=== PATIENT | female | born 1935 | race Caucasian/White ===

== ENCOUNTER 2016-07-17 05:46 | Inpatient (IN) | payer OTHER, SELFPAY ==
--- NOTE | ~2016-07-17 | EKG ---
PATIENT: WILDER ROWLAND UNIT #: [id number] Ventricular Rate: 60 BPM Atrial Rate: 60 BPM P-R Interval: 136 ms QRS Duration: 104 ms Q-T Interval: 436 ms QTC Calculation(Bezet): 436 ms P [place]: 31 degrees Calculated R [place]: -29 degrees Calculated T [place]: 12 degrees Diagnosis Line: Normal sinus rhythm Diagnosis Line: Moderate voltage criteria for LVH, may be normal Diagnosis Line: variant Diagnosis Line: Borderline ECG Diagnosis Line: No previous ECGs available Diagnosis Line: Confirmed by CHIRAG CHANG MD ([id number]) on Diagnosis Line: 07/18/2016 4:06:39 PM INTERPRETING MD: BERNARDO SPANGLER
--- NOTE | ~2016-07-17 | CR72 ---
[facility] A Service of [facility] & [facility] RADIOLOGY TEXT RESULTS PATIENT: WILDER ROWLAND LOCATION: [facility] 315- : 35 UNIT #: [id number] AGE: [address]: Dorota Hayes MD SEX: F ORDER DR: [id number] [facility] [address] [place], [place] [address] [id number] I MR#: [id number] Acc #: [id number] NAME: WILDER ROWLAND : 1935 SEX: F STUDY DATE/TIME: 07/17/2016 5:42 UNIT: [address] ROOM: [facility] STUDY DESCRIPTION: CR Chest Single View Portable Attending Physician: Dorota Hayes M.D. Ordering Physician: Ruben Travis M.D. Primary Care Physician: Herber Chan M.D. MEDICAL IMAGING REPORT This report is preliminary unless electronic signature is present EXAM Portable chest INDICATIONS Shortness of air, dizziness, and weakness for 1 day. TECHNIQUE/FINDINGS Single portable AP view chest compared to 01/24/2010 EXAM Heart and mediastinal contours within normal limits. There is minimal airspace opacity in the left lung base. No pneumothorax. IMPRESSION No minimal airspace opacity left lung base could represent atelectasis, early infiltrate, or small effusion. Please correlate clinical symptoms. Dictated by... Anuel Brownlee M.D. THIS IS AN ELECTRONICALLY VERIFIED REPORT Anuel Brownlee M.D. at 07/18/2016 8:18 AM [facility]/shabbir TD: 07/17/2016 13:22 JOB #: [id number] MEDICAL IMAGING REPORT COPY
--- NOTE | ~2016-07-17 | MR17 ---
[facility] A Service [facility] RADIOLOGY TEXT RESULTS PATIENT: WILDER ROWLAND LOCATION: [facility] 230-01 : 35 UNIT #: [id number] AGE: [address]: Dorota Hayes MD SEX: F ORDER DR: [id number] [facility] [address] [place], [place] [address] [id number] I MR#: [id number] Acc #: [id number] NAME: WILDER ROWLAND. : 1935 SEX: F STUDY DATE/TIME: 07/18/2016 20:21 UNIT: C3A PCU ROOM: 315 STUDY DESCRIPTION: MR Brain WWo Contrast Attending Physician: Dorota Hayes M.D. Ordering Physician: Dorota Hayes M.D. Primary Care Physician: Herber Chan M.D. MRI CENTER REPORT This report is preliminary unless electronic signature is present. EXAM Brain MRI with and without contrast 07/18/[address] 07/17/2016 PROCEDURE Routine brain MR with and without contrast. CLINICAL HISTORY Episode of dizziness yesterday, particularly exacerbated by movement. Left ear pain for 1 month. FINDINGS There is no MR evidence of acute ischemia or other restricted diffusion. There is volume loss and nonspecific periventricular white matter change, but no evidence of mass or hydrocephalus or extraaxial fluid collection. Normal flow voids are seen in the cerebral vessels. There is a single gradient hypointense focus in the right occipital cortex a few millimeters in size, but nonenhancing and of doubtful clinical significance. Postcontrast images show no evidence of mass or abnormal enhancement. IMPRESSION 1. No acute abnormality. No hemorrhage or mass or evidence of acute ischemia. No abnormal enhancement. There is volume loss and moderate chronic small vessel-type nonspecific white matter change but essentially normal for age. 2. There is a tiny gradient hypointense focus in the right occipital cortex without enhancement. There is probably a tiny calcification in this region on the head CT in retrospect, which may represent [facility] A Service [facility] RADIOLOGY TEXT RESULTS PATIENT: WILDER ROWLAND LOCATION: [place] [address] : 35 UNIT #: [id number] AGE: [address]: Dorota Hayes MD SEX: F ORDER DR: either a tiny cavernoma without enhancement or some remote blood product or some tiny calcification from some remote prior insult but, again, of doubtful clinical significance. The exam is, otherwise, unremarkable. Dictated by... Bhanu Corley M.D. THIS IS AN ELECTRONICALLY VERIFIED REPORT Bhanu Corley M.D. at 07/24/2016 5:11 PM [facility]/cecile TD: 07/19/2016 11:54 JOB #: [id number] MRI CENTER REPORT COPY
--- NOTE | ~2016-07-17 | CT17 ---
[facility] A Service of [facility] RADIOLOGY TEXT RESULTS PATIENT: WILDER ROWLAND LOCATION: [facility] 315-01 : 35 UNIT #: [id number] AGE: [address]: Dorota Hayes MD SEX: F ORDER DR: [id number] [facility] [address] [place], [place] [address] [id number] I MR#: [id number] Acc #: [id number] NAME: WILDER ROWLAND : 1935 SEX: F STUDY DATE/TIME: 07/21/2016 17:58 UNIT: [address] ROOM: [facility] STUDY DESCRIPTION: CT Angio Head Attending Physician: Dorota Hayes M.D. Ordering Physician: Dorota Hayes M.D. Primary Care Physician: Herber Chan M.D. MEDICAL IMAGING REPORT This report is preliminary unless electronic signature is present EXAM CT angiogram of head with IV contrast. DATE OF EXAM 07/21/2016 HISTORY Vertigo for 1 week. TECHNIQUE IV contrast enhanced CT angiogram of the head and neck was performed with 3-D reconstructions. NOTE: This CT exam was performed with one or more of the following radiation dose reduction techniques: automatic exposure control, adjustment of mA and/or kV according to patient size, and iterative reconstruction. FINDINGS Please see CT angiogram of head and neck performed 07/21/2016 for results. Dictated by... Jonathan Caldwell M.D. THIS IS AN ELECTRONICALLY VERIFIED REPORT Jonathan Caldwell M.D. at 07/22/2016 10:47 PM RICHARD/brett TD: 07/22/2016 17:07 JOB #: [id number] MEDICAL IMAGING REPORT COPY
--- NOTE | ~2016-07-17 | CT23 ---
[facility] A Service of [facility] & [facility] RADIOLOGY TEXT RESULTS PATIENT: WILDER ROWLAND LOCATION: [facility] 315-01 : 35 UNIT #: [id number] AGE: [address]: Dorota Hayes MD SEX: F ORDER DR: [id number] [facility] [address] [place], [place] [address] [id number] I MR#: [id number] Acc #: [id number] NAME: WILDER ROWLAND : 1935 SEX: F STUDY DATE/TIME: 07/21/2016 17:58 UNIT: [address] ROOM: [facility] STUDY DESCRIPTION: CT Angio Neck Attending Physician: Dorota Hayes M.D. Ordering Physician: Dorota Hayes M.D. Primary Care Physician: Herebr Chan M.D. MEDICAL IMAGING REPORT This report is preliminary unless electronic signature is present EXAM CT angiogram of head and neck with IV contrast. DATE OF EXAM 07/21/2016 HISTORY Vertigo for 1 week. TECHNIQUE IV contrast enhanced CT angiogram of the head and neck was performed with 3-D reconstructions. NOTE: This CT exam was performed with one or more of the following radiation dose reduction techniques: automatic exposure control, adjustment of mA and/or kV according to patient size, and iterative reconstruction. FINDINGS CT ANGIOGRAM NECK: The common carotid arteries are widely patent and the right carotid bulb is widely patent. There is moderate calcified atherosclerotic plaque in the left carotid bulb with additional plaque extending into the left proximal internal carotid artery with approximately 40% stenosis in the proximal left ICA by NASCET criteria. Both vertebral arteries are widely patent. CT ANGIOGRAM BRAIN: Moderate multifocal calcified plaque in the intracranial vertebral arteries, with probable moderate stenosis in the mid right intracranial vertebral artery and moderately severe short-segment stenosis in the mid left intracranial vertebral artery. There is a short-segment moderate to moderately severe stenosis in the proximal to mid vertebral artery and additional orks-ib-kugysjut atherosclerotic short segment stenoses in the mid to distal vertebral artery. Stuk-wz-tiinlamn calcified plaque in the cavernous carotid arteries bilaterally. The anterior cerebral arteries are unremarkable [facility] A Service of [facility] & [facility] RADIOLOGY TEXT RESULTS PATIENT: WILDER ROWLAND LOCATION: [id number] [birth year] UNIT #: [id number] AGE: [address]: Dorota Hayes MD SEX: F ORDER DR: bilaterally. Mild multifocal probable atherosclerotic stenoses in the P2 segments bilaterally, and in the posterior right M2 branches. The left middle cerebral artery is unremarkable. Patent anterior communicating artery. No aneurysm or vascular malformation is identified. IMPRESSION 1. Approximately 40% stenosis in the proximal left internal carotid artery by NASCET criteria secondary to a partly calcified atherosclerotic plaque. 2. No evidence of right cervical internal carotid artery stenosis. 3. 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 4. Additional moderate to moderately severe multifocal short segment stenoses in the proximal to mid basilar artery, likely atherosclerotic as well. 5. Mild multifocal stenoses in the P2 segments bilaterally and in the posterior right M2 segment. 6. No major intracranial arterial occlusion. Anterior communicating artery is incidentally noted. 7. The cervical vertebral arteries appear widely patent bilaterally. Dictated by... Jonathan Caldwell M.D. THIS IS AN ELECTRONICALLY VERIFIED REPORT Jonathan Caldwell M.D. at 07/22/2016 10:46 PM RICHARD/brett TD: 07/22/2016 17:02 JOB #: [id number] MEDICAL IMAGING REPORT COPY
--- NOTE | ~2016-07-17 | HP ---
Unit #: [id number] #: [id number] Patient: SILKE ROWLAND [id number] [address] [place], [place] [address] [id number] I MR#: [id number] NAME: SILKE ROWLAND. ROOM: 315 Age: 80 Sex: F Admission Date: 07/17/2016 : 1935 Attending Physician: Dorota Hayes M.D. Primary Care Physician: Herber Chan M.D. HISTORY AND PHYSICAL CHIEF COMPLAINT Dizziness. HISTORY OF PRESENTING ILLNESS Ms. Silke Rowland is an 80-year-old female who has a history of hypertension, hyperlipidemia, macular degeneration, diabetes mellitus type 2, came with a complaint of generalized weakness and dizziness. According to patient this just started on Sunday which was gradually getting worse. She got up to go to the bathroom and kind of felt very dizzy and her whole room was spinning. She felt kind of lightheaded, no fall. She does complain of one episode of vomiting. Patient has had dizziness in the past but not to this extent. Patient did have some nausea, weak all over, difficulty ambulating. It gets worse when she changes her position, whenever she moves her head. Does not complain of chest pain or shortness of breath; she also feels kind of dry. She does not complain of any other symptoms. PAST MEDICAL HISTORY 1. History of diabetes mellitus type 2. 2. Hypertension. 3. Hyperlipidemia. 4. History of macular degeneration. 5. History of CVA in the past. SOCIAL HISTORY There is no history of smoking, alcohol or drug abuse. PAST SURGICAL HISTORY 1. History of cholecystectomy. 2. History of bilateral total knee replacement. 3. History of hysterectomy. 4. History of bladder repair. ALLERGIES Codeine. HOME MEDICATIONS Home medications are: 1. Crestor 5 mg daily. 2. Glucophage 500 mg b.i.d. 3. Lopressor 50 mg b.i.d. REVIEW OF SYMPTOMS Unit #: [id number] #: [id number] Patient: SILKE ROWLAND No history of fever, chills or rigors. No history of chest pain. No history of abdominal pain. No history of constipation or diarrhea. Rest is as per history of presenting illness. PHYSICAL EXAMINATION GENERAL APPEARANCE: Patient is lying in bed, does not want to move much because of dizzy spell. VITAL SIGNS: Blood pressure on admission was 182/112. Respiratory rate 15. Pulse is 65. Temperature 98.3. HEENT: Head is normocephalic. Eye movements are normal. There is no nystagmus in the eyes. NECK: Neck is supple. CHEST: Chest has fair air entry. CVS: S1, S2 positive, regular rhythm. ABDOMEN: Abdomen is obese. EXTREMITIES: Negative edema. BUSINESS SUPPORT PROFESSIONAL: Patient is awake, alert and oriented x3 but she does not want to move her neck because that causes worsening of her vertigo. DIAGNOSTIC STUDIES LABORATORY: Workup done in ER shows WBC 10.3, hemoglobin 12.2, hematocrit 37.6 and platelet count of 246, sodium 137, potassium of 2.9, chloride 105, BUN 17, creatinine 0.7. Urinalysis was done which shows 2+ bacteria. Glucose 131. ESR 36. IMAGING: CT scan of the head without contrast was done and that showed no acute finding. Atrophy and chronic small vessel changes are seen. ASSESSMENT Patient is being admitted to telemetry unit with: 1. Vertigo/dizziness. 2. Urinary tract infection. 3. Generalized weakness. 4. Diabetes mellitus type 2. 5. Hypertension. 6. Hyperlipidemia. 7. History of macular degeneration. 8. History of cerebrovascular accident in the past. PLAN Plan is: 1. Admit to telemetry unit. 2. Blood cultures x2 with be done. 3. Lisinopril 10 mg p.o. daily. 4. Meclizine is being started. 5. IV antibiotic is being started. 6. Home medications have been reviewed and adjusted. Plan of care has been discussed with patient. Dictated by Nilesh Alas/jl Unit #: [id number] #: [id number] Patient: SILKE ROWLAND TD: 07/18/2016 15:45 JOB #: [id number] HISTORY AND PHYSICAL X Dorota Hayes MD X HISTORY AND PHYSICAL
--- NOTE | ~2016-07-17 | CT71 ---
[facility] A Service [facility] RADIOLOGY TEXT RESULTS PATIENT: WILDER ROWLAND LOCATION: [place] [address] : 35 UNIT #: [id number] AGE: [address]: Dorota Hayes MD SEX: F ORDER DR: [id number] [place] [id number] [facility] [place], [place] [address] [id number] I MR#: [id number] Acc #: [id number] NAME: WILDER ROWLAND. : 1935 SEX: F STUDY DATE/TIME: 07/17/2016 9:09 UNIT: CEDOF ROOM: [address] STUDY DESCRIPTION: CT Head Wo Contrast Attending Physician: Dorota Hayes M.D. Ordering Physician: Naheed Wagner M.D. Primary Care Physician: Herber Chan M.D. MEDICAL IMAGING REPORT This report is preliminary unless electronic signature is present EXAM CT head without contrast INDICATION Dizziness. Hypertension. Left ear pain. TECHNIQUE CT of the head without contrast. This CT exam was performed with one or more of the following radiation dose reduction techniques: automatic exposure control, adjustment of mA and/or kV according to patient size, and iterative reconstruction. COMPARISON None available. FINDINGS There is no acute intracranial hemorrhage, mass lesion, or acute infarct. There is some generalized global cerebral atrophy. The ventricles and basilar cisterns are normal in size and configuration. No extraaxial collections. No acute osseous abnormalities. Visualized paranasal sinuses and mastoid air cells are clear. There is moderate atherosclerotic calcifications of intracranial vasculature. IMPRESSION 1. No acute findings. 2. Atrophy and chronic small vessel changes. Dictated by... Anuel Brownlee M.D. [facility] A [facility] RADIOLOGY TEXT RESULTS PATIENT: WILDER ROWLAND LOCATION: [facility] 315- : 35 UNIT #: [id number] AGE: [address]: Dorota Hayes MD SEX: F ORDER DR: THIS IS AN ELECTRONICALLY VERIFIED REPORT Anuel Brownlee M.D. at 07/18/2016 8:18 AM MARIA/cecile TD: 07/17/2016 14:43 JOB #: [id number] MEDICAL IMAGING REPORT COPY
--- NOTE | ~2016-07-17 | DS ---
Unit #: [id number] #: [id number] Patient: WILDER ROWLAND [id number] [address] [place], [place] [address] [id number] I MR#: [id number] NAME: WILDER ROWLAND ROOM: 230 Age: 80 Sex: F Admission Date: 07/17/2016 : 1935 Discharge Date: Attending Physician: Dorota Hayes M.D. Primary Care Physician: Herber Chan M.D. DISCHARGE SUMMARY DATE OF TRANSFER TO REHAB FACILITY 07/24/2016 FINAL DIAGNOSES 1. Vertigo. 2. Urinary tract infection with urine culture positive for Escherichia coli more than 100,000 colonies and patient has completed the course of IV antibiotic which was Rocephin. 3. Forty percent stenosis in the proximal left internal carotid artery and moderate atherosclerosis in the mid right intracranial vertebral artery and moderately severe to severe short segment stenosis in the mid left intracranial vertebral artery secondary to calcified plaque. No major intracranial arterial occlusion. 4. Hypertension. 5. History of diabetes mellitus type 2. 6. Hyperlipidemia. 7. History of macular degeneration. 8. History of cerebrovascular accident in the past. DISCHARGE MEDICATIONS 1. Aspirin 325 mg p.o. daily. 2. Glucophage 500 mg b.i.d. 3. Meclizine 25 mg q.8 hourly and q.6 p.r.n. 4. Lopressor 50 mg q.12. 5. Crestor 5 mg q.h.s. 6. Zestril 20 mg at bedtime. Again, the patient has completed a course of IV Rocephin. CONSULTATIONS DURING HOSPITALIZATION 1. Dr. Mendes from [facility]. 2. Physical Therapy and Occupational Therapy. The patient did have Cam maneuver done by PT/OT. HOSPITAL COURSE Ms. Edouard is an 80-year-old female who was admitted with the complaint of dizziness and vertigo kind of symptom. The patient was found to have urinary tract infection. She was generalized weak, could not ambulate much. According to patient, it was mostly because of the dizziness. The patient was admitted to telemetry unit. Workup was done. The patient was started on IV Rocephin which she has completed a course. PT/OT was consulted. Cam maneuver was done and meclizine was started for dizziness. The patient is feeling much better but still somewhat dizzy. Unit #: [id number] #: [id number] Patient: WILDER ROWLAND This may take a little while. Dr. Mendes was consulted because of abnormal MRA. The patient does have left internal carotid stenosis, right intracranial vertebral artery stenosis and moderately severe mid left intracranial vertebral artery. The patient was started on aspirin. The patient may need appointment with [facility] stroke team as per Dr. Mendes's recommendations. The patient is doing much better at this time and is being discharged to rehab facility for continuation care. PHYSICAL EXAMINATION ON DISCHARGE VITAL SIGNS: Blood pressure 149/67. Respiratory rate 18. Pulse 64. Temperature 97.7. CHEST: Fair air entry. Decreased at the bases. CARDIOVASCULAR: S1, S2 positive. Regular rhythm. ABDOMEN: Soft. DISCHARGE INSTRUCTIONS 1. The patient is being discharged to rehab facility in stable condition. 2. Medication as per medication reconciliation. 3. Followup primary care provider after discharge from rehab in a week. 4. PT/OT and vestibular rehab in facility. 5. Appointment with [facility] stroke team. 6. Plan of care discussed with the patient at length. Dictated by... Nilesh Alas/minal TD: 07/24/2016 12:50 JOB #: [id number] DISCHARGE SUMMARY X Dorota Hayes MD X DISCHARGE SUMMARY
--- NOTE | ~2016-07-17 | CO ---
Unit #: [id number] #: [id number] Patient: WILDER ROWLAND [id number] [facility] [address] [facility]. [place], [place] [address] [id number] MR#: [id number] NAME: WILDER ROWLAND ROOM: 315 Age: 80 Sex: F Admission Date: 07/17/2016 : 1935 Attending Physician: Dorota Hayes M.D. Primary Care Physician: Herber Chan M.D. Consultation Date: 07/21/2016 CONSULTATION REPORT PRIMARY CARE PHYSICIAN Herber Chan M.D. REASON FOR CONSULTATION Dizziness. PATIENT IDENTIFICATION This is an 80-year-old, right-handed, female, evaluated in room 315 at [facility]. SOURCE OF INFORMATION Obtained from the patient as well as medical record. The patient is a poor historian. HISTORY OF PRESENT ILLNESS This is an 80-year-old, right-handed, female with a history of hypertension, dizziness described in the past as lightheadedness with ambulation and standing, hyperlipidemia, macular degeneration, diabetes mellitus type 2, who presents to [facility] with complaints of dizziness that she describes more as vertigo or sensation of the room spinning. She reports that there was sudden onset on Sunday and has gotten worse with no improvement. She states that she got up to go to the bathroom and had sudden feeling of the room spinning. She states that she did not fall or injure herself. She complains of associated nausea and vomiting. She reports that she has had dizziness in the past, but not of this nature. She states that she does ambulate with a walker due to lightheadedness with standing, but denies any history of vertigo. She states that it is worse with position change and better whenever she lies still. She denies any sudden vision changes, loss of vision or double vision, headache or neck pain, fever or chills, focal weakness or paresthesia, loss of consciousness or loss of awareness. She does complain of a sore throat and does have some mild erythema on exam, but no exudates. We will defer to the admitting team. She does report that her symptoms have improved with meclizine, but reports that it makes her feel sleepy. She does report some continued nausea throughout this hospital stay. She has also been noted to have a urinary tract infection with final culture growing greater than 100,000 colony count of E. coli and is being treated for that. Her blood cultures are unremarkable x2 sets after 24 hours. She had a head CT done in the ED without contrast that showed no acute findings, that showed atrophy with chronic small vessel changes. She denies any other exacerbating or alleviating factors or any other associated symptoms. PAST MEDICAL HISTORY Unit #: [id number] #: [id number] Patient: WILDER ROWLAND 1. Diabetes mellitus type 2. 2. Hypertension. 3. Hyperlipidemia. 4. Obesity. 5. Macular degeneration. 6. CVA. 7. Nonsmoker. 8. Cholecystectomy. 9. Bilateral total knee replacement. 10. Hysterectomy. 11. Bladder repair. FAMILY HISTORY Noncontributory. SOCIAL HISTORY Negative for smoking, alcohol use, or illicit drug use. ALLERGIES Codeine. MEDICATIONS Include; Crestor 5 mg p.o. daily, Glucophage 500 mg p.o. b.i.d., Lopressor 50 mg p.o. b.i.d. REVIEW OF SYSTEMS 12-point review of systems was done. Pertinent positives are as discussed above. She denies fever. Please also note that she complains of muscle pain with Lipitor. She has been receiving Lipitor in place of Crestor since she has been admitted to this facility. PHYSICAL EXAMINATION VITAL SIGNS: Temperature 98, pulse 64, respirations 18, blood pressure 137/65, oxygen saturation 99% on room air. Height 5 feet 7 inches, weight 208 pounds, BMI 33. NEUROLOGIC: She is awake, but drowsy. She is oriented to person, place, and time as well as events. She is of somewhat of a poor historian. No right or left confusion. No finger agnosia. No aphasia, dysarthria, or apraxia. Cranial nerve exam, she demonstrates full cormier of vision. Eyes are conjugate without ptosis or nystagmus. Extraocular movements are intact. Sensation of face and scalp is intact. Strength of muscles of facial expression is intact. Hearing is intact to voice, but she is hard of hearing. Tongue is midline. Uvula is midline. Palate elevation is normal. She does have some erythema of her tonsils, but no exudates noted. Motor exam, she demonstrates normal bulk and tone. Strength, she is generally weak all over, but no focal weakness appreciated. She can move all extremities equally and spontaneously. She has approximately 4/5 in strength. Sensory exam intact. No extinction appreciated. Gait and Romberg deferred. Reflexes, unable to elicit. Toes are equivocal. Coordination, no past-pointing seen. Normal [id number]. I attempted to perform Darwin-Hallpike, but given the patient's lethargy, body habitus, and generalized weakness, I was unable to perform Darwin-Hallpike independently by myself. Unit #: [id number] #: [id number] Patient: WILDER ROWLAND DIAGNOSTIC STUDIES IMAGING STUDIES: Head CT, please see above. MRI of the brain without and with contrast on 07/18/2016; impression per Radiology report, 1. No acute abnormality, no hemorrhage or mass, or evidence of acute ischemia. No abnormal enhancement. There was volume loss and moderate chronic small vessel type nonspecific white matter change, but essentially normal for age. There is a tiny gradient hypodense focus in the right occipital cortex without enhancement. There is probably a tiny calcifications region on the head CT in retrospect, which may represent either a tiny cavernoma without enhancement or some remote blood products or some tiny calcification from some remote prior insult, but again of doubtful clinical significance. Otherwise, exam unremarkable. Chest x-ray on 07/17/2016; impression per Radiology report, 1. No minimal airspace opacity in left lung base, could represent atelectasis or early infiltrate or small effusion. Correlate clinical symptoms. LABORATORY RESULTS: BMP unremarkable other than glucose of 111. CBC shows a white count of 13.6, hemoglobin 12.2, hematocrit 37.7, and platelet count 256. Urine culture as discussed above. CARDIOVASCULAR STUDIES: EKG; normal sinus rhythm with 60 beats per minute ventricular and atrial rate. Blood cultures as discussed above. ESR 36. White count on arrival 10.3. IMPRESSION 1. Vertigo, suspect benign paroxysmal positional vertigo based upon history and evaluation. We did defer Oralia-Hallpike to Occupational Therapy as it is difficult to assess that with this patient only one person. The occupational therapist and her student assessed the patient and the patient was noted to have a positive Oralia-Hallpike on the left and they are attempting Cam maneuver during their evaluation. 2. Urinary tract infection. 3. Complaints of sore throat, erythema. On exam, no exudates. Defer to admitting team for further evaluation and assessment. 4. Diabetes mellitus type 2. 5. Chronic immobility, uses a walker at home with chronic dizziness. 6. Hypertension. 7. Hyperlipidemia. Pain with Lipitor this week. I will change the patient back to her home dose of Crestor with no substitute in the pharmacy. She was tolerating Crestor without difficulty. 8. Abnormal MRI of doubtful clinical significance. 9. History of aneurysm not discussed above per the patient. PLAN We will continue meclizine. Consider Medrol Dosepak. OT is following. Rehab recommended if the patient's symptoms do not resolve, where she could go home independently; however, believes she does live with a family member, but ambulates with a walker at baseline. MRI findings have been discussed and reviewed with Dr. Mendes and appeared clinically insignificant. Recommend follow up on an outpatient basis. We will request a CT angiogram given her reports of vertigo and history of aneurysm; though, differential diagnosis is most likely benign paroxysmal positional vertigo. Please see orders. Please call for any questions or issues. We thank you very much for allowing us to assist in the care of this Unit #: [id number] #: [id number] Patient: WILDER ROWLAND patient. Dictated by... Lea Merchant A.P.R.N. for Nilesh Rader/stephanie TD: 07/21/2016 17:40 JOB #: [id number] CONSULTATION REPORT X Lea Merchant APRN X CONSULTATION REPORT
[2016-07-17 05:37] LABS: BASOPHIL% 0.3 % (0-2.5); EOSINOPHIL# 0.3 X10e3 (0-0.7); EOSINOPHIL% 3.2 % (0.0-7.0); HEMATOCRIT 37.6 % (35.0-45.0); HEMOGLOBIN 12.2 gm/dL (12.0-16.0); LYMPHOCYTE# 2.6 X10e3 (1.0-3.5); LYMPHOCYTE% 25.2 % (17.0-45.0); MEAN CELL VOLUME 85.5 FL (83-96); MEAN CORPUSCULAR HEMOGLOBIN 27.9 PG (28-34); MEAN CORPUSCULAR HGB CONC 32.6 g/dL (30-36); MEAN PLATELET VOLUME 7.7 FL (6.5-11.5); MONOCYTE# 0.8 X10e3 (0-1.0); MONOCYTE% 8.2 % (3.0-12.0); NEUTROPHIL# 6.5 X10e3 (1.5-7.1); NEUTROPHIL% 63.1 % (40-75); PLATELET COUNT 246 X10e3 (140-420); RED BLOOD COUNT 4.39 X10e (3.90-5.30); RED CELL DISTRIBUTION WIDTH 15.5 % (11.0-15.5); WHITE BLOOD COUNT 10.3 X10e3 (4.0-10.5)
[~2016-07-17 05:46] MED LIST: ASPIRIN81 M1; ATARAX PO; CHOLESTEROL MED PO; ENALAPRIL MALEA10 MG; LOVASTATIN20 MG; METOPROLOL TAR25 MG; SYMBICORT 160/4.6 GM
[2016-07-17 05:56] LABS: DIFF IND NO
[2016-07-17 06:00] LABS: URINE SOURCE CLEAN CATCH
[2016-07-17 06:11] LABS: URINE APPEARANCE TURBID; URINE BILIRUBIN NEG (NEG); URINE BLOOD 2+ (NEG); URINE COLOR YELLOW; URINE GLUCOSE NEG (NEG); URINE KETONE NEG (NEG); URINE LEUKOCYTE ESTERASE 3+ (NEG); URINE NITRATE POS (NEG); URINE PROTEIN TRACE (NEG); URINE SPECIFIC GRAVITY 1.022 (1.003-1.035); URINE UROBILINOGEN 0.2 MG/DL (NEG)
[2016-07-17 06:13] LABS: CULTURE INDICATED? YES; URINE SQUAMOUS EPITHELIAL CELL MOD /[HPF]; UWBCS1 AUWI INNUM (0-5)
[2016-07-17 06:23] LABS: ALBUMIN SERUM 3.4 g/dL (3.5-5.0); ALKALINE PHOSPHATASE 50 U/L (32-92); ALT (SGPT) 15 U/L (10-40); AST (SGOT) 25 U/L (10-42); BILIRUBIN, DIRECT 0.1 mg/dL (0.0-0.2); BILIRUBIN,INDIRECT 0.4 mg/dL (0.0-0.9); BILIRUBIN,TOTAL 0.5 mg/dL (0.2-2.0); BLOOD UREA NITROGEN 17 mg/dL (9-23); BUN/CREATININE RATIO 24.28; CALCIUM SERUM 9.2 mg/dL (8.4-10.2); CARBON DIOXIDE 23 mmol/L (22-31); CHLORIDE 105 mmol/L (100-111); CREATININE SERUM 0.7 mg/dL (0.6-1.4); GLOM FILT RATE Estimated ABOVE60 mL/min (>60); GLUCOSE FASTING 147 mg/dL (70-110); POTASSIUM 3.9 mmol/L (3.5-5.1); PROTEIN TOTAL SERUM 6.7 g/dL (6.0-8.3); SODIUM 137 mmol/L (135-145)
[2016-07-17 06:37] LABS: URINE BACTERIA AUWI 2+ (NEGATIVE)
[2016-07-17] MEDS ORDERED: GLUCOPHAGE500 M1 PO (08:05)
[2016-07-17] MEDS ORDERED: CRESTOR5 MG PO (08:05)
[2016-07-17] MEDS ORDERED: LOPRESSOR PO (08:06)
[2016-07-21 06:17] LABS: HEMATOCRIT 37.7 % (35.0-45.0); HEMOGLOBIN 12.2 gm/dL (12.0-16.0); MEAN CELL VOLUME 84.4 FL (83-96); MEAN CORPUSCULAR HEMOGLOBIN 27.3 PG (28-34); MEAN CORPUSCULAR HGB CONC 32.4 g/dL (30-36); MEAN PLATELET VOLUME 7.7 FL (6.5-11.5); RED BLOOD COUNT 4.46 X10e (3.90-5.30); RED CELL DISTRIBUTION WIDTH 15.5 % (11.0-15.5); WHITE BLOOD COUNT 13.6 X10e3 (4.0-10.5)
[2016-07-21 06:56] LABS: BLOOD UREA NITROGEN 10 mg/dL (9-23); CALCIUM SERUM 8.9 mg/dL (8.4-10.2); CARBON DIOXIDE 24 mmol/L (22-31); CHLORIDE 103 mmol/L (100-111); CREATININE SERUM 0.8 mg/dL (0.6-1.4); GLOM FILT RATE Estimated ABOVE60 mL/min (>60); GLUCOSE FASTING 111 mg/dL (70-110); POTASSIUM 3.9 mmol/L (3.5-5.1); SODIUM 137 mmol/L (135-145)
[2016-07-22 07:05] LABS: HEMATOCRIT 35.9 % (35.0-45.0); HEMOGLOBIN 11.9 gm/dL (12.0-16.0); MEAN CELL VOLUME 84.5 FL (83-96); MEAN CORPUSCULAR HGB CONC 33.1 g/dL (30-36); MEAN PLATELET VOLUME 7.4 FL (6.5-11.5); RED BLOOD COUNT 4.25 X10e (3.90-5.30); RED CELL DISTRIBUTION WIDTH 15.8 % (11.0-15.5)
[2016-07-22 13:53] LABS: CHOLESTEROL 144 mg/dL (0-200); HDL CHOLESTEROL 38 mg/dL (35-95); LDL CHOLESTEROL 77 mg/dL (-130); LDL/HDL RATIO 2 RATIO (0-4); TRIGLYCERIDES 146 mg/dL (10-160)
[2016-07-24 09:47] LABS: BLOOD UREA NITROGEN 13 mg/dL (9-23); BUN/CREATININE RATIO 16.25; CALCIUM SERUM 9.4 mg/dL (8.4-10.2); CARBON DIOXIDE 25 mmol/L (22-31); CHLORIDE 106 mmol/L (100-111); CREATININE SERUM 0.8 mg/dL (0.6-1.4); GLOM FILT RATE Estimated ABOVE60 mL/min (>60); GLUCOSE FASTING 104 mg/dL (70-110); POTASSIUM 3.9 mmol/L (3.5-5.1); SODIUM 139 mmol/L (135-145)
== END 2016-07-24 15:54 | DRG 690 ==
LOC: CED 05:46 → CEDOF 08:30 → C3A PCU 17:28 → C2A 07-23 18:41
PROVIDERS: Emergency Medicine; Hospitalist; Physician Assistant Medical; Psychiatry & Neurology Neurology
PROC: B325YZZ Computerized Tomography (CT Scan) of Bilateral Common Carotid Arteries using Other Contrast (ICD-10-PCS; principal; 2016-07-21)
PROC: B32GYZZ Computerized Tomography (CT Scan) of Bilateral Vertebral Arteries using Other Contrast (ICD-10-PCS; 2016-07-21)
PROC: B328YZZ Computerized Tomography (CT Scan) of Bilateral Internal Carotid Arteries using Other Contrast (ICD-10-PCS; 2016-07-21)
DX: N39.0 Urinary tract infection, site not specified (principal); E11.9 Type 2 diabetes mellitus without complications; I65.22 Occlusion and stenosis of left carotid artery; B96.20 Unspecified Escherichia coli [E. coli] as the cause of diseases classified elsewhere; I10 Essential (primary) hypertension; E78.5 Hyperlipidemia, unspecified; H81.10 Benign paroxysmal vertigo, unspecified ear; E66.9 Obesity, unspecified; H35.30 Unspecified macular degeneration; Z86.73 Personal history of transient ischemic attack (TIA), and cerebral infarction without residual deficits; Z90.49 Acquired absence of other specified parts of digestive tract; Z96.653 Presence of artificial knee joint, bilateral; Z90.710 Acquired absence of both cervix and uterus; Z88.5 Allergy status to narcotic agent; Z79.84 Long term (current) use of oral hypoglycemic drugs; J02.9 Acute pharyngitis, unspecified; I65.03 Occlusion and stenosis of bilateral vertebral arteries
CPT/HCPCS: 36415; 51701; 70450; 70496; 70498; 70553; 71010; 80048; 80061; 80076; 81003; 82947; 83036; 85025; 85027; 85652; 87040; 87086; 87088; 87186; 93005; 96360; 97110; 97116; 97163; 97167; 97530; 97535; 99285; A9577; G8978-GP; G8979-GP; G8987-GO; G8988-GO; J0360; J0696; J1815; J2405; Q9967